=== PATIENT | female | born 1980 | race Hispanic/Latino ===

== ENCOUNTER 2019-02-27 17:41 | Emergency (ER) | payer OTHER, SELFPAY ==
[2019-02-27 19:18] VITALS: BP 120/80; PULSE 64; O2SAT 97
--- NOTE | 2019-02-27 19:32 | ERPHSYRPT ---
- History of Present Illness Source: patient, family Exam Limitations: no limitations Patient Subjective Stated Complaint: PT states "I work at [employer] and a metal drum fell and hit me in the side of the head. They put an ice pack on it and now my head hurts, my neck hurts and my right eye is having pain as well." Triage Nursing Assessment: Pt alert and oriented X 3, skin pwd. PT ambulates with an upright steady gait, able to speak in clear full sentences. Pt speaks little turkmen with mostly maltese. pt in no apparent respiratory distress. No swelling noted. Physician History: Pt is a 38 y/o female that presented to the ED post head injury. Pt was working in [email or web address] and a week ago a drum fell and hit her in the head on the R side of her head. She used cold compress and the bruising in her her resolved, but she still has headache, problem in vision and neck pain. Pt was fired from the [employer] day post incident. She denies F/C/S. No blurry vision or double vision. She states, has some spots in vision, periodically. Occurred: last week Severity: moderate Head Injury Location: temporal Method of Injury: direct blow (Work incident) Loss of Consciousness: brief (seconds) Associated Symptoms: headaches, other (vision problems, and neck pain) Allergies/Adverse Reactions: No Known Drug Allergies Allergy (Verified 02/27/19 17:53) Home Medications: Amoxicillin [Amoxil] 500 mg PO DAILY 02/27/19 [History] Hx Tetanus, Diphtheria Vaccination/Date Given: Yes Hx Influenza Vaccination/Date Given: Yes Hx Pneumococcal Vaccination/Date Given: No Immunizations Up to Date: Yes - Review of Systems Constitutional: No Fever, No Chills Eyes: Vision Changes Ears, Nose, & Throat: No Symptoms Respiratory: No Cough, No Dyspnea Cardiac: No Chest Pain, No Edema, No Syncope Abdominal/Gastrointestinal: No Abdominal Pain, No Nausea, No Vomiting, No Diarrhea Genitourinary Symptoms: No Dysuria Musculoskeletal: Neck Pain Skin: No Rash Neurological: Headache - Past Medical History Pertinent Past Medical History: Yes Other Medical History: HEART MURMUR - Past Surgical History Past Surgical History: No - Social History Smoking Status: Never smoker Exposure to second hand smoke: Yes Drug Use: none Patient Lives Alone: No - Female History Hx Last Menstrual Period: 02/04/2019 Hx Now: No - Nursing Vital Signs Nursing Vital Signs: Initial Vital Signs Temperature 98.4 F 02/27/19 17:45 Pulse Rate 84 02/27/19 17:45 Respiratory Rate 18 02/27/19 17:45 Blood Pressure 118/82 02/27/19 17:45 O2 Sat by Pulse Oximetry 98 02/27/19 17:45 Pain Scale Pain Intensity 6 - [place] Coma Score Best Eye Response ([place]): (4) open spontaneously Best Verbal Response ([place]): (5) oriented Best Motor Response ([place]): (6) obeys commands [place] Total: 15 - Physical Exam General Appearance: no apparent distress, alert Eye Exam: bilateral eye: normal inspection, PERRL, EOMI ENT Exam: airway nml Neck Exam: supple, trachea midline, normal alignment, tenderness (to palpation) Cardiovascular/Respiratory Exam: chest non-tender, normal breath sounds, regular rate/rhythm Gastrointestinal/Abdominal Exam: soft, non tender, no distention Back Exam: normal inspection, No vertebral tenderness Extremity Exam: non-tender, normal range of motion, 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 Exam: normal hearing, normal speech, PERRL Coordination/Gait Exam: normal finger to nose, normal gait, normal cerebellar function Motor/Sensory Exam: no motor deficit, no sensory deficit, CN II-XII intact Skin Exam: normal color, warm, dry, No rash SpO2 Interpretation: normal SpO2: 97 - CT Exams Head CT Interpretation: Negative Maxillofacial Bones CT Interpretation: Tele-radiologist Report (Minimal b/l maxillary sinus dsx) Cervical Spine CT Interpretation: Tele-radiologist Report (lordotic straightening) Ordered Tests: Active Orders 24 hr Category Date Time Status CERVICAL SPINE WO CONTRAST [CT] Stat Exams 02/27/19 17:57 Taken FACIAL BONES WO CONTRAST [CT] Stat Exams 02/27/19 17:57 Taken HEAD WITHOUT CONTRAST [CT] Stat Exams 02/27/19 17:57 Taken HCG,QUALITATIVE URINE Stat Lab 02/27/19 18:07 Completed Lab/Rad Data: Laboratory Results 02/27/19 Range/Units 18:07 Urine HCG, Qual NEGATIVE (Negative) - Progress Progress: unchanged Progress Note: 02/27/19 19:35 CTs of pt's head, facial bones and cervical spine were done, with no acute abnormality. I advised the pt to see [facility], if she has changes and spots in her vision, to evaluate her eyes. She can take OTC NSAIDs on a PRN basis for pain. She should f/u with her PCP. Will see patient in: office Counseled pt/family regarding: need for follow-up - Departure Departure Disposition: Home Clinical Impression: Head injury Condition: Stable Critical Care Time: No Additional Instructions: Take NSAIDs on a PRN basis. F/U with ophtamology if vision changes continues. F/U with PCP.
--- NOTE | 2019-02-28 08:33 | XRAY ---
Indication: Right-sided pain following injury. Multiple contiguous axial images obtained through the facial bones. Sagittal and coronal reformatted images obtained. Comparison: None A few bilateral dental amalgams produces beam artifact. No acute fracture, suspicious bony lesions, or foreign body. Orbits including roof, schmitt, and floors intact. 11 mm polyp/retention cyst floor of the right maxillary sinus and minimal mucosal thickening floor of the left maxillary sinus. Remaining paranasal sinuses and nasal passages are clear. Very minimal nasal septal deviation to the right. Remaining visualized noncontrasted soft tissues unremarkable. Impression: 1. Negative acute fracture. 2. Incidental paranasal sinus disease. CT DI 59.47
--- NOTE | 2019-02-28 08:35 | XRAY ---
Indication: Right-sided pain following injury. Multiple contiguous axial images obtained through the cervical spine. Sagittal and coronal reformatted images obtained. Comparison: None Axial images negative for acute fracture, suspicious bony lesions, or spinal canal stenosis. Sagittal and coronal reformatted images demonstrates lordotic reversal, positional versus paraspinal spasm. Vertebral body heights and disc spaces maintained. No acute compression fracture, subluxation, or jumped facet. Normal-appearing craniocervical junction. Visualized soft tissues including lung apices unremarkable. Impression: 1. Cervical lordotic reversal, positional versus paraspinal spasm. 2. Negative acute fracture/subluxation. CT DI 61.82
--- NOTE | 2019-02-28 08:36 | XRAY ---
Indication: Right-sided pain following injury. Multiple contiguous axial images obtained through the head without contrast. Comparison: None Normal appearing brain parenchyma, ventricles, and bony calvarium. Visualized paranasal sinuses and mastoid air cells are clear. Impression: Normal CT head without contrast exam. CT DI 51.54
== END 2019-02-27 19:45 | disposition home or self-care (01) ==
LOC: ED 17:41
DX: S09.90XA Unspecified injury of head, initial encounter (principal); W20.8XXA Other cause of strike by thrown, projected or falling object, initial encounter; Y92.69 Other specified industrial and construction area as the place of occurrence of the external cause; Y99.0 Civilian activity done for income or pay; M54.2 Cervicalgia; H57.11 Ocular pain, right eye
CPT/HCPCS: 70450; 70486; 72125; 84703; 99284